=== PATIENT | male | born 1965 | race Two or more races ===

== ENCOUNTER 2017-09-11 18:37 | Inpatient (IN) | payer MEDICARE, OTHER ==
[~2017-09-11] VITALS: Ht 167.6 cm; Wt 68.0 kg
--- NOTE | 2017-09-11 18:40 | NUR ---
Dr. Calderon at bedside in room 2a for MSE.
[2017-09-11] MEDS ORDERED: DIAZEPAM PO (19:05)
[2017-09-11] MEDS ORDERED: IMIPRAMINE PO (19:05)
[2017-09-11] MEDS ORDERED: LORAZE (19:05)
[2017-09-11] MEDS ORDERED: HYDROCODONE (19:05)
[2017-09-11] MEDS ORDERED: GABAPENTIN PO (19:05)
[2017-09-11] MEDS ORDERED: OXYB (19:05)
[2017-09-11] MEDS ORDERED: LISINOPRIL (19:05)
[2017-09-11] MEDS ORDERED: BACLOFEN PO (19:05)
--- NOTE | 2017-09-11 19:05 | NUR ---
PT IS IN ROOM #2A. DR CASTILLO EVALUATED THE PT.
[2017-09-11] MEDS ORDERED: LORAZEPAM PO (19:11)
[2017-09-11] MEDS ORDERED: OXYBUTYNIN PO (19:12)
--- NOTE | 2017-09-11 19:16 | NUR ---
ASSUMED CARE OF PATIENT. PATIENT IN BED, NO ACUTE DISTRESS NOTED. VSS.
[2017-09-11 19:27] LABS: BASOPHILS # (AUTO) 0.1 K/uL (0.0-8.0); BASOPHILS % (AUTO) 1.2 % (0.0-2.0); EOSINOPHILS # (AUTO) 0.2 K/uL (0.0-0.7); EOSINOPHILS % (AUTO) 2.9 % (0.0-7.0); HEMATOCRIT 39.8 % (36.7-47.1); HEMOGLOBIN 13.4 g/dL (12.5-16.3); LYMPHOCYTES # (AUTO) 1.5 K/uL (20.0-40.0); LYMPHOCYTES % (AUTO) 26.8 % (20.5-51.5); MEAN CORPUSCULAR HEMOGLOBIN 29.7 uug (23.8-33.4); MEAN CORPUSCULAR HGB CONC 34 g/dL (32.5-36.3); MEAN CORPUSCULAR VOLUME 88.1 fL (73.0-96.2); MONOCYTES # (AUTO) 0.4 K/uL (2.0-10.0); MONOCYTES % (AUTO) 6.6 % (0.0-11.0); NEUTROPHILS # (AUTO) 3.5 K/uL (1.8-8.9); NEUTROPHILS % (AUTO) 62.5 % (38.5-71.5); PLATELET COUNT (AUTO) 244 K/uL (152-348); RED BLOOD CELL COUNT(AUTO) 4.52 MIL/uL (4.06-5.63); WHITE BLOOD COUNT (AUTO) 5.6 K/uL (3.6-10.2)
[2017-09-11 19:49] LABS: CREATININE 0.7 mg/dL (0.6-1.3); POTASSIUM 3.9 mmol/L (3.5-5.1)
[2017-09-11 19:53] LABS: BILIRUBIN,DIRECT 0.1 mg/dL (0.0-0.2); BILIRUBIN,TOTAL 0.4 mg/dL (0.2-1.0); TOTAL PROTEIN, SERUM 7.4 g/dL (6.4-8.2)
[2017-09-11] MEDS ORDERED: ONDANSETRON IV *ER 4 MG/2 ML VIAL IV ONE (20:00)
[2017-09-11] MEDS ORDERED: ONDANSETRON 4 MG/2 ML VIAL ONE (20:02)
--- NOTE | 2017-09-11 20:13 | NUR ---
Patient in CT at this time. VSS
--- NOTE | 2017-09-11 21:05 | NUR ---
Report given to Maverick VILLAFANA on Telemetry
--- NOTE | 2017-09-11 21:24 | NUR ---
Pt. admitted to Telemetry, under care of Antione Sierra. Dx: Chest pain. Patient going to room 216. Report was given to Maverick VILLAFANA on telemetry unit. Belongs List completed
--- NOTE | 2017-09-11 21:44 | NUR ---
Patient in bed, no acute distress at this time. Patient awaiting inpatient admission at this time. VSS. Respirations even and unlabored. No acute distress noted at this time.
--- NOTE | 2017-09-11 21:52 | NUR ---
Pt. admitted to Telemetry , under care of Antione Sierra DNP Belongs List completed
--- NOTE | 2017-09-11 22:00 | NUR ---
PT ALERT AWAKE IN NO ACUTE DISTRESS ADMITTED TO TELEMETRY UNIT WITH NORMAL SINUS RHYTHM. PT NOTED WITH SUPRAPUBIC CATHETER, COLOSTOMY BAG AND IS PARAPLEGIC. SPEAKS IRISH WITH FEW BRITISH. RUDY AT BEDSIDE ASSISTING. DENIES ANY CHEST PAIN OR DISCOMFORT AT THIS TIME. ABLE TO MAKE NEEDS KNOWN AND FOLLOWS SIMPLE COMMAND. CONTINUE TO MONITOR. AWAITING MD ORDERS. 3 SIDE RAILS RAISED.
[2017-09-11 22:34] VITALS: BP 107/62
--- NOTE | 2017-09-11 23:15 | NUR ---
DAUGHTER ABLE TO GIVE ROUTINE HOME HS MEDICATION. DR RICHARDSON IS AWARE. Addendum: 09/12/17 at 0301 by PAM JARAMILLO RN * ABLE TO GIVE ROUTINE HOME HS MEDICATION.
[2017-09-12 00:07] VITALS: BP 126/61
[2017-09-12] MEDS ORDERED: IV NS 1000 ML 1,000 ML IV PRN (00:09)
[2017-09-12] MEDS ORDERED: ONDANSETRON 4 MG/2 ML VIAL IV PRN (00:15)
[2017-09-12] MEDS ORDERED: Z GUARD REMEDY PASTE 57 GM TUBE TOP PRN (00:15)
[2017-09-12] MEDS ORDERED: ACETAMINOPHEN 325 MG TABLET PO PRN (00:15)
--- NOTE | 2017-09-12 01:00 | NUR ---
PT IN ROOM ALERT AWAKE AND STATES HE IS UNABLE TO SLEEP. BP NOTED 126/61. NO S/S OF RESP DISTRESS. ABLE TO MAKE NEEDS KNOWN. SINUS RHYTHM CURRENTLY ON MANAGER STRATEGIC SOURCING. CALL LIGHT WITHIN REACH.
[2017-09-12] MEDS ORDERED: ZOLPIDEM 5 MG TABLET PO PRN ×2 (03:00→16:00)
--- NOTE | 2017-09-12 03:00 | NUR ---
PT C/O HEADACHE AND PREVIOUS TYLENOL PRN INEFFECTIVE. DR EVANS MADE AWARE AND ORDERED MORPHINE 2MG IVP Q4H PRN SEVERE PAIN. NOTED AND CARRIED OUT. RUDY WAS INFORMED AND WILL BRING COPY OF HOME MEDICATION LIST MORNING AROUND 0800.
[2017-09-12] MEDS ORDERED: MORPHINE SULFATE 2 MG/1 ML DISP.SYRIN IV PRN (03:30)
[2017-09-12] MEDS ORDERED: MORPHINE SULFATE 2 MG/1 ML DISP.SYRIN ONE (03:34)
[2017-09-12 05:48] VITALS: BP 130/71
--- NOTE | 2017-09-12 06:00 | NUR ---
PT ABLE TO SLEEP UP TO TWO HRS SINCE RECEIVING MORHPINE 2M IV. NO C/O INCREASED HEADACHES AT THIS TIME. BP 130/71. NO S/S OF ACUTE DISTRESS. WILL CONTINUE TO MONITOR. CALL LIGHT WITHIN REACH. NO EPISODES OF CHEST PAIN OVERNIGHT SINCE ADMISSION. DATA ENTRY PROCESSOR STATES SINUS RHYTHM AT THIS TIME. WILL CONTINUE TO MONITOR. HOB ELEVATED MAINTAINED 30 DEGREES. MAINTAINING IV HYDRATION.
--- NOTE | 2017-09-12 07:44 | NUR ---
RECEIVED SHIFT REPORT FROM RN PROCEDURES NURSE. PATIENT RESTING COMFORTABLY IN BED AT THIS TIME. NO COMPLAINTS OF CHEST PAIN. STABLE CONDITION, VITAL SIGNS STABLE, NO S/S OF DISTRESS. WILL BE BRING IN LIST OF MEDICATIONS AND WILL ADD IN MEDICATION RECONCILIATION AND FAX TO PHARMACY. WILL CONTINUE TO MONITOR. SINUS RHYTHM ON TELE.
[2017-09-12] MEDS ORDERED: METO-295 PO (09:22)
[2017-09-12] MEDS ORDERED: FENO145T37 PO (09:23)
[2017-09-12] MEDS ORDERED: SENN-134 PO (09:25)
[2017-09-12] MEDS ORDERED: ZOLP10TA6 PO (09:26)
[2017-09-12] MEDS ORDERED: HYDR-3326 PO (09:43)
[2017-09-12 11:57] VITALS: BP 110/66
--- NOTE | 2017-09-12 12:41 | NUR ---
WOUND CARE CONSULT: PT PRESENTS WITH RT GREAT TOE DRY ABRASION AND MULTIPLE SCARS INCLUDING SACRAL AND BILATERAL HIPS, PRESENT ON ADMISSION. PT ON FIRST STEP MATTRESS. ALL SKIN PROTECTION MEASURES IN PLACE AND DISCUSSED WITH NURSING STAFF. WILL SEE PRN. DORADO IN AGREEMENT WITH PLAN OF CARE. CURRENT NINFA SCORE IS 14. Addendum: 09/12/17 at 1242 by KIERRA CESAR RN Amended: Links added.
[2017-09-12 15:10] VITALS: BP 123/70
[2017-09-12] MEDS ORDERED: LORAZEPAM 0.5 MG TABLET PO PRN (16:00)
[2017-09-12] MEDS ORDERED: DIAZEPAM 5 MG TABLET PO PRN (16:00)
[2017-09-12] MEDS ORDERED: SENNOSIDES/DOCUSATE SODIUM TABLET PO PRN (16:00)
[2017-09-12] MEDS ORDERED: BACLOFEN 20 MG TABLET PO SCH (17:00)
[2017-09-12] MEDS ORDERED: METOCLOPRAMIDE HCL 10 MG TABLET PO SCH (17:00)
[2017-09-12] MEDS ORDERED: GABAPENTIN 300 MG CAPSULE PO SCH (17:00)
--- NOTE | 2017-09-12 18:30 | NUR ---
PATIENT DISCHARGED HOME AT THIS TIME IN STABLE CONDITION, NO S/S OF DISTRESS, VITAL SIGNS STABLE. PATIENT'S SIGNED DISCHARGE FORMS/DOCUMENTATION. ID BAND TAKEN OFF, IV-DISCONNECTED, TELEMETRY BOX DISCONNECTED AND RETURNED BACK TO PLASTER PATTERNMAKER. WOUND CARE PROVIDED IN SACRAL OLD WOUND, PICTURE TAKEN OF SACRAL SCAR/REDNESS. WRITTEN PRESCRIPTION PER MD ORDERS PROVIDED TO PATIENT. DISCHARGE EDUCATION/INSTRUCTIONS PROVIDED TO PATIENT. BELONGINGS CHECKLIST COMPLETED AND SIGNED. PATIENT'S IS FORM OF TRANSPORTATION FOR PATIENT GOING HOME AND LEFT MED-SURG FLOOR IN SAFE CONDITION. NO COMPLAINTS OF CHEST PAIN. VITAL SIGNS STABLE.
[2017-09-12] MEDS ORDERED: IMIPRAMINE HCL 25 MG TABLET PO SCH (21:00)
[2017-09-12] MEDS ORDERED: OXYBUTYNIN CHLORIDE 5 MG TABLET PO SCH (22:00)
[2017-09-13] MEDS ORDERED: HYDROCODONE/APAP 5-325MG TABLET PO SCH (09:00)
[2017-09-13] MEDS ORDERED: FENOFIBRATE NANOCRYSTALLIZED 145 MG TABLET PO SCH (09:00)
== END 2017-09-12 18:30 | disposition home or self-care (01) | DRG 880 ==
LOC: ER 18:37 → TELE 21:45
PROVIDERS: ADMIT Nurse Practitioner Acute Care; ATTEND Nurse Practitioner Acute Care
DX: F41.9 Anxiety disorder, unspecified (principal); G82.20 Paraplegia, unspecified; R07.2 Precordial pain; G47.00 Insomnia, unspecified; Z93.3 Colostomy status; T14.8XXS Other injury of unspecified body region, sequela; W34.00XS Accidental discharge from unspecified firearms or gun, sequela; F32.9 Major depressive disorder, single episode, unspecified; R44.1 Visual hallucinations; R51 Headache; I10 Essential (primary) hypertension; R41.0 Disorientation, unspecified
CPT/HCPCS: 36415; 70030-TC; 70450; 71045; 85025; 85730; 93005; 93307; A4663; J2270; J2405; J7030

== ENCOUNTER 2023-09-13 11:42 | Emergency (ER) | payer MEDICARE, OTHER ==
[~2023-09-13] VITALS: Ht 172.7 cm; Wt 81.6 kg
[~2023-09-13 11:42] MED LIST: BACLOFEN PO; DIAZEPAM PO; FENO145T21 PO; GABAPENTIN PO; HYDR-3326 PO; IMIPRAMINE PO; LORAZEPAM PO; METO-295 PO; OXYBUTYNIN PO; SENN1TAB59 PO; ZOLP10TA6 PO
[2023-09-13] MEDS ORDERED: ACETAMINOPHEN ES 500 MG TABLET ONE (12:09)
[2023-09-13] MEDS: ACETAMINOPHEN ES 500 MG TABLET PO ONE (12:11)
[2023-09-13] MEDS ORDERED: GABA600T12 PO (12:19)
[2023-09-13] MEDS ORDERED: METO5TAB2 PO (12:19)
[2023-09-13] MEDS ORDERED: APIX5TAB PO (12:19)
[2023-09-13] MEDS ORDERED: DIAZ10TA4 PO (12:19)
[2023-09-13] MEDS ORDERED: DICL100G31 TP (12:19)
[2023-09-13] MEDS ORDERED: BACL20TA (12:19)
[2023-09-13] MEDS ORDERED: ARIP2TAB19 PO (12:19)
[2023-09-13] MEDS ORDERED: OXYB5TAB16 PO (12:19)
[2023-09-13] MEDS ORDERED: LORA0.5T48 PO (12:19)
[2023-09-13] MEDS ORDERED: AMLO-212 PO (12:19)
[2023-09-13] MEDS ORDERED: IMIP25TA6 (12:19)
[2023-09-13 13:04] LABS: BASOPHILS % (AUTO) 0.4 % (0.0-2.0); EOSINOPHILS # (AUTO) 0.1 K/uL (0.0-0.7); EOSINOPHILS % (AUTO) 1.3 % (0.0-7.0); HEMATOCRIT 45.5 % (36.7-47.1); HEMOGLOBIN 15.5 g/dL (12.5-16.3); LYMPHOCYTES # (AUTO) 1.2 K/uL (0.8-4.8); LYMPHOCYTES % (AUTO) 11.9 % (20.5-51.5); MEAN CORPUSCULAR HEMOGLOBIN 29.7 uug (23.8-33.4); MEAN CORPUSCULAR HGB CONC 34 g/dL (32.5-36.3); MEAN CORPUSCULAR VOLUME 87.4 fL (73.0-96.2); MONOCYTES # (AUTO) 0.7 K/uL (0.1-1.30); MONOCYTES % (AUTO) 6.8 % (0.0-11.0); NEUTROPHILS # (AUTO) 7.8 K/uL (1.8-8.9); NEUTROPHILS % (AUTO) 79.6 % (38.5-71.5); PLATELET COUNT (AUTO) 207 K/uL (152-348); RED CELL DISTRIBUTION WIDTH 16.2 % (12.1-16.2); WHITE BLOOD COUNT (AUTO) 9.9 K/uL (3.6-10.2)
[2023-09-13 13:05] LABS: DIFFERENTIAL COMMENT 1
[2023-09-13 13:14] LABS: ALANINE AMINOTRANSFERASE 91 U/L (16-63); ALBUMIN 4.1 g/dL (3.4-5.0); ALKALINE PHOSPHATASE 109 U/L (50-136); ASPARTATE AMINOTRANSFERASE 98 U/L (15-37); BILIRUBIN,DIRECT 0.3 mg/dL (0.0-0.2); BILIRUBIN,TOTAL 1.2 mg/dL (0.2-1.0); CALCIUM 8.6 mg/dL (8.5-10.1); CARBON DIOXIDE 23 mmol/L (21-32); CHLORIDE 97 mmol/L (98-107); CREATININE 0.8 mg/dL (0.6-1.3); GLUCOSE 93 mg/dL (74-106); POTASSIUM 3.8 mmol/L (3.5-5.1); SODIUM SERUM 132 mmol/L (136-145); UREA NITROGEN, BLOOD 10 mg/dL (7-18)
[2023-09-13 14:42] VITALS: BP 134/72; TEMP 97.8; O2SAT 98
== END 2023-09-13 14:43 | disposition home or self-care (01) ==
LOC: ER 11:45
DX: I10 Essential (primary) hypertension (principal); M79.672 Pain in left foot; Z79.899 Other long term (current) drug therapy
CPT/HCPCS: 36415; 71045; 73620; 84484; 85025; 93005; A4606; A4663; A9150